=== PATIENT | female | born 1995 | race Caucasian/White ===

== ENCOUNTER 2017-06-19 12:38 | Emergency (ER) | payer BC ==
[~2017-06-19] VITALS: Ht 160 cm; Wt 43.5 kg
--- NOTE | 2017-06-19 12:55 | NUR ---
AAOX3, CAME TO ER C/O HEADACHE, ABRASIONS TO R KNEE, R ELBOW, CHIN AND BACK S/P FELL, PT ADMITS DRINKING ETOH LAST NIGHT. DENIES CHANGES IN VISION. NEURO INTACT. SKIN IS WARM AND DRY. RES IS EVEN AND UNLABORED WITH NAD NOTED. AWAITING MD FOR EVAL.
[2017-06-19 14:00] VITALS: BP 116/77
--- NOTE | 2017-06-19 14:26 | NUR ---
Patient discharged to home in stable condition. Written and verbal after care instructions given. Patient verbalizes understanding of instruction.
== END 2017-06-19 14:25 | disposition home or self-care (01) ==
LOC: ER 12:42
DX: S06.0X1A Concussion with loss of consciousness of 30 minutes or less, initial encounter (principal); S50.311A Abrasion of right elbow, initial encounter; S80.211A Abrasion, right knee, initial encounter; W19.XXXA Unspecified fall, initial encounter; Y93.89 Activity, other specified; Y92.89 Other specified places as the place of occurrence of the external cause; Y99.8 Other external cause status; Z88.1 Allergy status to other antibiotic agents
CPT/HCPCS: 70450; 99284; A4606; Z7610